=== PATIENT | female | born 1975 | race Caucasian/White ===

== ENCOUNTER 2016-03-02 11:06 | Emergency (ER) | payer OTHER ==
--- NOTE | 2016-03-02 11:59 | RAD ---
ANKLE-LEFT 3 VIEW COMPARISON: None HISTORY: Twisted left ankle this morning. FINDINGS: Views: Left ankle AP, mortise, lateral. Bones: Normal. Joints: Normal. Soft tissues: Normal. IMPRESSION: Normal three view left ankle.
[2016-03-02] MEDS ORDERED: IBUPROFEN 600 MG TABLET ONE (12:33)
--- NOTE | 2016-03-02 12:59 | RAD ---
FOOT LEFT 3 VIEWS COMPARISON: Left foot 3 views, 06/17/2015 HISTORY: Twisted left ankle today. Left foot pain and ankle pain. FINDINGS: Views: Left foot dorsoplantar, medial oblique, lateral. Bones: No acute finding. First metatarsal bunion. Bifid tibial sesamoid bone of the first metatarsal. Joints: Normal. Soft tissues: Normal. IMPRESSION: 1. Normal 3 views of the left foot.
== END 2016-03-02 13:05 | disposition home or self-care (01) ==
LOC: ED 11:06
DX: S93.402A Sprain of unspecified ligament of left ankle, initial encounter (principal); S93.602A Unspecified sprain of left foot, initial encounter; G35 Multiple sclerosis; X50.0XXA Overexertion from strenuous movement or load, initial encounter; Y92.003 Bedroom of unspecified non-institutional (private) residence as the place of occurrence of the external cause

== ENCOUNTER 2016-03-24 10:45 | Emergency (ER) | payer OTHER ==
[2016-03-24] MEDS ORDERED: HYDROCODONE/ACETAMINOPHEN 5/325MG TABLET ONE (11:41)
[2016-03-24] MEDS ORDERED: ONDANSETRON 4 MG ODT TAB ONE (11:41)
== END 2016-03-24 12:53 | disposition home or self-care (01) ==
LOC: ED 10:45
DX: R51 Headache (principal); I10 Essential (primary) hypertension; G35 Multiple sclerosis

== ENCOUNTER 2016-04-06 12:20 | Emergency (ER) | payer OTHER ==
[2016-04-06] MEDS ORDERED: METOCLOPRAMIDE HCL 5 MG/ML 2ML VIAL ONE (13:08)
[2016-04-06] MEDS ORDERED: DIPHENHYDRAMINE HCL 50 MG/1 ML VIAL ONE (13:08)
[2016-04-06] MEDS ORDERED: ONDANSETRON 4 MG ODT TAB ONE (13:08)
[2016-04-06] MEDS ORDERED: IBUPROFEN 100 MG/5 ML SYRINGE ONE (15:46)
== END 2016-04-06 15:14 | disposition home or self-care (01) ==
LOC: ED 12:20
DX: G43.909 Migraine, unspecified, not intractable, without status migrainosus (principal); I10 Essential (primary) hypertension; R00.0 Tachycardia, unspecified; G35 Multiple sclerosis

== ENCOUNTER 2016-06-04 11:39 | Emergency (ER) | payer OTHER ==
[2016-06-04] MEDS ORDERED: PREDNISONE 20 MG TABLET ONE (12:20)
== END 2016-06-04 12:25 | disposition home or self-care (01) ==
LOC: ED 11:39
DX: L50.9 Urticaria, unspecified (principal); G35 Multiple sclerosis